=== PATIENT | male | born 1975 | race Caucasian/White ===

== ENCOUNTER 2025-06-03 10:14 | Day surgery (SDC) | payer OTHER ==
[~2025-06-03] VITALS: Ht 193 cm; Wt 126.7 kg
[2025-06-03] MEDS ORDERED: Benzocaine Oral Spray 0.5ML UD ONE (12:15)
[2025-06-03] MEDS ORDERED: Midazolam HCL 1 MG/ML 5MLVIAL ONE (12:18)
== END 2025-06-03 13:32 | disposition home or self-care (01) ==
LOC: ORSCSDS 10:14
PROVIDERS: Internal Medicine Gastroenterology
PROC: 0DB98ZX Excision of Duodenum, Via Natural or Artificial Opening Endoscopic, Diagnostic (ICD-10-PCS; principal; 2025-06-03 12:00)
PROC: 0DBB8ZX Excision of Ileum, Via Natural or Artificial Opening Endoscopic, Diagnostic (ICD-10-PCS; principal; 2025-06-03 12:00)
PROC: 0DBE8ZX Excision of Large Intestine, Via Natural or Artificial Opening Endoscopic, Diagnostic (ICD-10-PCS; principal; 2025-06-03 12:00)
PROC: 0DB78ZX Excision of Stomach, Pylorus, Via Natural or Artificial Opening Endoscopic, Diagnostic (ICD-10-PCS; principal; 2025-06-03 12:00)
DX: R10.32 Left lower quadrant pain (principal); G47.33 Obstructive sleep apnea (adult) (pediatric); F41.9 Anxiety disorder, unspecified; E66.9 Obesity, unspecified; Z68.33 Body mass index [BMI] 33.0-33.9, adult; Z86.718 Personal history of other venous thrombosis and embolism
CPT/HCPCS: 88305; 88342; A9270; J2250; J2704; J7120